=== PATIENT | female | born 1935 | race Caucasian/White ===

== ENCOUNTER 2023-09-26 06:19 | Emergency (ER) | payer OTHER ==
[~2023-09-26] VITALS: Ht 167.6 cm; Wt 99.8 kg
[~2023-09-26 06:19] MED LIST: ALLO100T PO; ASPI-862 PO; FERR-57 PO; HYDR-3919 PO; LIP20 PO; LISI40TA13 PO; VERA180T59 PO
[2023-09-26 06:28] VITALS: BP_SYST 153; PULSE 90; RESP 20; TEMP 97.5; O2SAT 97
[2023-09-26 06:35] VITALS: RESP 12; TEMP 97.8
[2023-09-26 08:06] VITALS: BP_SYST 136; PULSE 81; O2SAT 90
== END 2023-09-26 09:16 | disposition home or self-care (01) ==
LOC: SED 06:19
DX: S83.91XA Sprain of unspecified site of right knee, initial encounter (principal); Z88.2 Allergy status to sulfonamides; W01.0XXA Fall on same level from slipping, tripping and stumbling without subsequent striking against object, initial encounter; Y93.89 Activity, other specified; Y92.89 Other specified places as the place of occurrence of the external cause; Y99.8 Other external cause status
CPT/HCPCS: 73564; 99283